=== PATIENT | male | born 1970 | race Caucasian/White ===

== ENCOUNTER 2018-06-06 18:28 | Emergency (ER) | payer MEDICAID ==
[~2018-06-06] VITALS: Ht 177.8 cm; Wt 85.0 kg
[~2018-06-06 18:28] MED LIST: HYDR-3240 PO; LITH300T30 PO; LITH600C PO; MAG355OR14 PO; OMEP-110 PO
[2018-06-06 18:38] VITALS: BP 149/86
[2018-06-06] MEDS ORDERED: DEXAMETHASONE 4 MG TABLET ONE (19:26)
[2018-06-06] MEDS ORDERED: DEXAMETHASONE 4 MG TABLET PO ONE (19:30)
== END 2018-06-06 20:09 | disposition home or self-care (01) ==
LOC: ED 20:00
DX: J20.8 Acute bronchitis due to other specified organisms (principal); B97.89 Other viral agents as the cause of diseases classified elsewhere; F31.9 Bipolar disorder, unspecified
CPT/HCPCS: 71046; 99284

== ENCOUNTER 2018-10-11 19:33 | Emergency (ER) | payer MEDICAID ==
[~2018-10-11] VITALS: Ht 177.8 cm; Wt 85.1 kg
[2018-10-11] MEDS ORDERED: CEPHALEXIN 500 MG CAPSULE ONE (21:29)
[2018-10-11] MEDS ORDERED: KETOROLAC 30 MG/1 ML ONE (21:29)
[2018-10-11] MEDS ORDERED: CEPHALEXIN 500 MG CAPSULE PO ONE (21:30)
[2018-10-11] MEDS ORDERED: KETOROLAC 60 MG/2 ML IM ONE (21:30)
[2018-10-11 21:53] VITALS: BP 125/76
== END 2018-10-11 21:56 | disposition home or self-care (01) ==
LOC: ED 21:48
DX: L03.031 Cellulitis of right toe (principal); M10.071 Idiopathic gout, right ankle and foot
CPT/HCPCS: 73630; 96372; 99283; J1885

== ENCOUNTER 2019-07-25 23:47 | Emergency (ER) | payer MEDICAID ==
[~2019-07-25] VITALS: Ht 177.8 cm; Wt 86.6 kg
[2019-07-25 23:49] VITALS: BP 125/84
[2019-07-26] MEDS ORDERED: DEXAMETHASONE 4 MG TABLET ONE (00:12)
[2019-07-26] MEDS ORDERED: DEXAMETHASONE 4 MG TABLET PO ONE (00:30)
== END 2019-07-26 01:00 | disposition home or self-care (01) ==
LOC: ED 23:59
DX: J02.8 Acute pharyngitis due to other specified organisms (principal); B97.89 Other viral agents as the cause of diseases classified elsewhere
CPT/HCPCS: 87081; 87880; 99283